=== PATIENT | female | born 1985 | race American Indian/Alaskan Native ===

== ENCOUNTER 2016-09-03 07:22 | Day surgery (SDC) | payer OTHER ==
[2016-09-02 14:29] VITALS: BMI 21.9
[2016-09-03 08:11] VITALS: TEMP 98.3
[2016-09-03 08:15] LABS: BASOPHIL 0.7 % (0-2.0); EOSINOPHIL 5.3 % (0-4.5); MCH 28.9 pg (25.7-33.7); MEAN PLT VOLUME 7.3 fl (7.5-11.1); NEUTROPHILS 58.7 % (42.8-82.8); PLATELET COUNT 308 K/MM3 (134-434); RDW 12.1 % (11.6-15.6); WHITE BLOOD COUNT 6.7 K/mm3 (4.0-10.0)
[2016-09-03 08:28] LABS: INR 0.99 (0.82-1.09); PROTHROMBIN TIME (PATIENT) 10.9 SEC (9.98-11.88)
[2016-09-03 15:40] VITALS: BP 111/70; PULSE 100
--- NOTE | 2016-09-17 17:17 | PATH ---
Surgical Pathology Report Patient Name: SARITA AGUILERA [facility]. Rec. #: [id number] /Age/Gender: 1985 (Age: 31) / F Account: [id number] Location: RADIOLOGY Taken: 09/03/2016 Received: 09/03/2016 Reported: 09/17/2016 Physicians: Dustin Christie M.D. Clem Hernández M.D. Specimen(s) Received RENAL BIOPSY Clinical History 31-year-old female with renal insufficiency. Serum creatinine was 1.06 mg/dl in December 2014. In June 2016, she experienced a miscarriage associated with severe hypertension and LUCIANA (serum creatinine 1.7 mg/dl). Currently normotensive. Medications include clindamycin for mastitis. Past medical history includes pre-diabetes and hyperlipidemia. No family history of kidney disease. Uric acid level elevated (7.4). Medications include labetalol. Height 62.5 inches, weight 122 pounds, BMI 22. Serum albumin 4.4 gm. dl. Final Diagnosis RENAL BIOPSY ([facility], [id number]): 1. DIFFUSE GLOBAL GLOMERULOSCLEROSIS, SEVERE. (SEE COMMENT) 2. TUBULAR ATROPHY AND INTERSTITIAL FIBROSIS, MODERATE 3. ARTERIOSCLEROSIS, MILD AND ARTERIOLOSCLEROSIS, MODERATE TO SEVERE. Comment: Immunofluorescence microscopy shows no evidence of immune complex or monoclonal immunoglobulin/light chain deposition. The pathologic findings are non-specific but the absence of heavy proteinuria argues against a primary glomerular disease and favors either a tubulointerstitial or vascular etiology. Given the history of elevated uric acid level, the possibility of underlying medullary cystic disease/nephronophthisis should be considered. No acute/active inflammatory injury or features of acute thrombotic microangiopathy are seen, but clinical correlation with antiphospholipid antibody tests is suggested. LIGHT MICROSCOPY: Sections are stained with H&E, PAS, trichrome and JMS. Sections show one core of subcapsular renal cortex. Twenty-three (23) glomeruli are seen, 20 of which show complete global sclerosis. The non-sclerotic glomeruli are mildly enlarged and display patent capillary lumina and unremarkable basement membranes. No crescents, fibrinoid necrosis or fibrin thrombi are seen. There is moderate patchy tubular atrophy and interstitial fibrosis affecting 40% of the cortical area, accompanied by a patchy mononuclear inflammatory cell infiltrate. Focal "endocrine-type" tubular atrophy is noted. No tubulitis or cysts are seen. Arteries show mild intimal fibrosis and no evidence of arteritis. Arterioles show moderate to severe hyalinosis. ELECTRON MICROSCOPY: RENAL BIOPSY: -- FOOT PROCESS EFFACEMENT, 30%. -- INTERSTITIAL INFLAMMATION, 2+. -- CONSISTENT WITH: 1. DIFFUSE GLOBAL GLOMERULOSCLEROSIS, SEVERE. 2. TUBULAR ATROPHY AND INTERSTITIAL FIBROSIS, MODERATE. 3. ARTERIOSCLEROSIS, MILD AND ARTERIOLOSCLEROSIS, MODERATE TO SEVERE. See report from [facility], [id number]. Signed by Sumeet Altamirano M.D. Electronically Signed Dallin Adorno M.D. Microscopic Description Sections are stained with H&E, PAS, trichrome and JMS. Sections show one core of subcapsular renal cortex. Twenty-three (23) glomeruli are seen, 20 of which show complete global sclerosis. The non-sclerotic glomeruli are mildly enlarged and display patent capillary lumina and unremarkable basement membranes. No crescents, fibrinoid necrosis or fibrin thrombi are seen. There is moderate patchy tubular atrophy and interstitial fibrosis affecting 40% of the cortical area, accompanied by a patchy mononuclear inflammatory cell infiltrate. Focal "endocrine-type" tubular atrophy is noted. No tubulitis or cysts are seen. Arteries show mild intimal fibrosis and no evidence of arteritis. Arterioles show moderate to severe hyalinosis. Gross Description Received in saline labeled "renal biopsy right" are 3 miranda, cylindrical portions of soft tissue ranging from 0.4-1.3 cm in length and averaging 0.1 cm in diameter. The specimens are divided, placed into 10% buffered formalin, Bruce fixative and glutaraldehyde. The specimen is sent to [facility] for further studies. 09/03/2016 [facility]09/03/2016
== END 2016-09-03 14:35 | disposition home or self-care (01) ==
LOC: JRADIR 07:22
PROVIDERS: ATTEND Internal Medicine Nephrology
PROC: BT41ZZZ Ultrasonography of Right Kidney (ICD-10-PCS; principal; 2016-09-03)
PROC: 0TB03ZX Excision of Right Kidney, Percutaneous Approach, Diagnostic (ICD-10-PCS; 2016-09-03)
DX: N18.2 Chronic kidney disease, stage 2 (mild) (principal)
CPT/HCPCS: 36415; 50200; 76098-TC; 76942-TC; 84703; 85025; 85610; 87899